=== PATIENT | female | born 1995 | race Caucasian/White ===

== ENCOUNTER 2022-05-27 21:00 | Emergency (ER) | payer BC, SELFPAY ==
[2022-05-27] VITALS (14 sets, daily range): BP systolic 176–199; BP diastolic 132–154; PULSE 79–99; RESP 16–18; TEMP 36.6; O2SAT 91–100; BMI 28.3
--- NOTE | 2022-05-27 21:48 | ED_ITS ---
HPI - Chest Pain General Date Seen: 05/27/22 Chief Complaint: High Blood Pressure Stated Complaint: Hypertension, Chest pain, high heart rate Time Seen by Provider: 05/27/22 21:03 Source: patient and family Mode of arrival: ambulatory Limitations: no limitations History of Present Illness HPI narrative: Patient is a 27-year-old female who has struggled with chest pain, she has been to the doctor this being her 3rd time in the last week, she was in the urgency room on 2 days ago, there her blood tests were normal her EKG was normal, she was sent out to follow up with her primary care physician she has seen her primary care physician, and not started on medication for her hypertension, as they were just watching it tonight her blood pressure became even higher in the 190 range, this was coupled with chest pain that she had, headache, and she thought she should be seen, she is a social smoker, does not use any drugs, uses only rare alcohol intake, was on control up to 3 days ago when she stopped this. MD complaint: chest pain Onset (ago): day(s) Timing of current episode: constant Prior episodes: Yes Onset: during rest and during exertion Pain location: substernal and left chest Pain radiation: none Severity: moderate Quality: tightness, aching and heaviness Relieving factors: nothing Exacerbating factors: exertion, inspiration, palpation, movement and stress Treatment prior to arrival: none Risk Factors Thoracic aortic dissection risk factors: none Pulmonary embolism risk factors: oral contracepetive use Related Data On Oral Contraceptives: Yes Home Medications Medication Instructions Recorded Confirmed melatonin 10 mg capsule 20 mg PO HS PRN 05/27/22 05/27/22 nortriptyline 25 mg capsule 25 mg PO DAILY 05/27/22 05/27/22 zolmitriptan 2.5 mg tablet See Rx Instructions PO .COMPLEX 05/27/22 05/27/22 Previous Rx's Medication Instructions Recorded atenolol 50 mg tablet 50 mg PO BID #60 tabs 05/28/22 Allergies Allergy/AdvReac Type Severity Reaction Status Date / Time doxycycline Allergy Severe Anaphylaxis Verified 05/27/22 23:46 sumatriptan Allergy Severe Anaphylaxis Verified 05/27/22 23:46 Review of Systems Status of ROS Reports: 10 or more systems reviewed and unremarkable except as noted in History and below PFSH PFSH Social History Smoking Status: Unknown if ever smoked Do you use any of these nicotine containing products: None Second hand tobacco smoke exposure: No How often do you have a drink containing alcohol: monthly or less How often do you have six or more drinks on one occasion: Never AUDIT-C Alcohol total score: 1 Non-prescribed substance use: denies use service: No Exam Narrative Exam Narrative: Patient is speaking normally, no problem with slurring words, oriented x3. Head eyes ears nose and throat exam show equal pupils, no scleral icterus, extraocular muscles are normal, no facial droop, speech is normal, trachea normal and midline. Thyroid normal midline palpable not enlarged. Chest shows symmetrical rise bilaterally, normal auscultation with no wheezes, no increased work of breathing, no overt bruising or lesions seen, no tenderness is noted on auscultation. Heart sounds normal with no S3-S4 no murmurs clicks or gallops. Abdomen shows no obvious masses or hepatosplenomegaly, no organomegaly, bowel s ounds are normal in all quadrants. No tenderness is noted also in all quadrants. Upper and lower extremities show normal power, normal range of motion, pulses are normal, sensations normal, fine motor movements are normal, pelvis is stable to rocking. Cervical spine shows normal range of motion, and palpably not tender. Thoracic spine shows normal range of motion, and palpably not tender, lumbar spine shows no tenderness to palpation percussion and is otherwise normal range of motion. Skin shows no rashes, petechiae or eccymosis. Const Vital Signs, click to edit/add: Vital Signs - 24 hr 05/27/22 21:14 05/27/22 21:45 05/27/22 22:00 Temperature 97.9 F Pulse Rate 89 Pulse Rate [Pulse Oximeter] 92 82 Respiratory Rate 16 18 Blood Pressure Blood Pressure [Right Upper Arm] 197/141 H 187/146 H Pulse Oximetry 98 100 100 Oxygen Delivery Method Room Air Room Air 05/27/22 22:02 05/27/22 22:03 05/27/22 22:15 Temperature Pulse Rate 84 81 80 Pulse Rate [Pulse Oximeter] Respiratory Rate Blood Pressure 199/154 H Blood Pressure [Right Upper Arm] Pulse Oximetry 100 98 98 Oxygen Delivery Method 05/27/22 22:30 05/27/22 22:32 05/27/22 22:45 Temperature Pulse Rate 79 86 86 Pulse Rate [Pulse Oximeter] Respiratory Rate 16 16 Blood Pressure 176/132 H 176/132 H Blood Pressure [Right Upper Arm] Pulse Oximetry 99 100 98 Oxygen Delivery Method Room Air 05/27/22 23:00 05/27/22 23:02 05/27/22 23:15 Temperature Pulse Rate 92 99 90 Pulse Rate [Pulse Oximeter] Respiratory Rate Blood Pressure 176/134 H Blood Pressure [Right Upper Arm] Pulse Oximetry 98 100 99 Oxygen Delivery Method 05/27/22 23:37 05/27/22 23:45 05/28/22 00:00 Temperature Pulse Rate 86 89 Pulse Rate [Pulse Oximeter] Respiratory Rate Blood Pressure Blood Pressure [Right Upper Arm] Pulse Oximetry 91 98 98 Oxygen Delivery Method 05/28/22 00:01 05/28/22 00:15 Temperature Pulse Rate 81 72 Pulse Rate [Pulse Oximeter] Respiratory Rate Blood Pressure 149/103 H Blood Pressure [Right Upper Arm] Pulse Oximetry 100 99 Oxygen Delivery Method Documenting provider has reviewed patient's vital signs: yes Course Course Hospital Course: Patient's headache improved in her blood pressure improved also. I think going home within the medications as directed would be important, atenolol 50 mg p.o. b.i.d., and follow-up with primary care, this may also help her headache situation. Reassured by her labs, her chest CT was normal, along with her head CT. Explained her that we do not have a cause for hypertension, but other causes should be ruled out but this can be done as an outpatient basis, Vital Signs Vital signs: Initial Vital Signs Temperature 97.9 F 05/27/22 21:14 Temperature Source Temporal Artery Scan 05/27/22 21:14 Pulse Rate 92 05/27/22 21:14 Pulse Rhythm 05/27/22 21:14 Respiratory Rate 16 05/27/22 21:14 Blood Pressure 197/141 H 05/27/22 21:14 Blood Pressure Mean 159 05/27/22 21:14 Pulse Oximetry 98 05/27/22 21:14 Oxygen Delivery Method 05/27/22 21:14 Vital Signs Temperature 97.9 F 05/27/22 21:14 Pulse Rate 92 05/27/22 21:14 Respiratory Rate 16 05/27/22 21:14 Blood Pressure 197/141 H 05/27/22 21:14 Pulse Oximetry 98 05/27/22 21:14 Oxygen Delivery Method 05/27/22 21:14 Temperature 97.9 F 05/27/22 21:14 Pulse Rate 72 05/28/22 00:15 Respiratory Rate 16 05/27/22 22:32 Blood Pressure 149/103 H 05/28/22 00:01 Pulse Oximetry 99 05/28/22 00:15 Oxygen Delivery Method 05/27/22 22:32 MDM - Chest Pain MDM Narrative Medical decision making narrative: During the evaluation of this patient I considered multiple differential diagnosis is. The life-threatening differential diagnosis include coronary disease/[place], pulmonary embolism, pneumothorax, pneumonia, and aortic dissection. Other differential diagnosis included but were not limited to pericarditis, myocarditis, chest wall pain, GERD, esophageal rupture, rib fracture contusion, pleurisy, as well as other etiologies. Medical Records Data Attestation: I reviewed the patient's medical records. Medical records narrative: Medical records from the urgency room reviewed. Lab Data Attestation: I reviewed the patient's lab results. Labs: Lab Results 05/27/22 05/27/22 05/27/22 Range/Units 21:50 21:50 21:50 WBC 7.56 (4.50-11.00) K/uL RBC 4.70 (4.00-5.20) m/uL Hgb 14.3 (12.0-16.0) gm/dL Hct 42.2 (33.0-51.0) % MCV 90 (80-100) fL MCH 30 (26-34) pg MCHC 34 (32-36) gm/dL RDW Coeff of Femi 11.8 (11.5-15.5) % Plt Count 313 (140-440) K/uL Neut % (Auto) 54.2 (42.0-72.0) % Lymph % (Auto) 37.6 (20-44) % [place] % (Auto) 6.7 (0.0-11.0) % Eos % (Auto) 1.2 (0.0-7.0) % Baso % (Auto) 0.3 (0.0-3.0) % Neut # (Auto) 4.10 (1.7-7.0) K/uL Lymph # (Auto) 2.84 (0.90-2.90) K/uL [place] # (Auto) 0.50 (0.00-0.90) K/UL Eos # (Auto) 0.09 (0.00-0.50) K/uL Baso # (Auto) 0.02 (0.00-0.30) K/uL INR (0.91-1.10) APTT (23-33) Seconds D-Dimer Quant (PE/DVT) 0.61 H (0.00-0.50) ug/ml Sodium 139 (135-149) mmol/L Potassium 3.4 L (3.6-5.1) mmol/L Chloride 105 (96-114) mmol/L Carbon Dioxide 28 (20-32) mmol/L BUN 11 (5-24) mg/dL Creatinine 0.8 (0.5-1.5) mg/dL Estimated Creat Clear 88.15 Estimated GFR 104 ml/min Glucose 106 (60-115) mg/dL Calcium 9.0 (8.4-10.6) mg/dL Troponin I < 0.01 L (0.01-0.04) ng/mL NT-Pro-B Natriuret Pep pg/mL HCG, Qual (Negative) Urine Color (Yellow) Urine Appearance (Clear) Urine pH (5.0-8.5) Ur Specific [place] (1.000-1.030) Urine Protein (Negative) Urine Glucose (UA) (Negative) Urine Ketones (Negative) Urine Blood (Negative) Urine Nitrite (Negative) Urine Bilirubin (Negative) Urine Urobilinogen (0.2-1.0) Ur Leukocyte Esterase (Negative) Urine RBC (0-2) Urine WBC (0-5) Ur Squamous Epith Cells (None-Few) Amorphous Sediment (None) Urine Bacteria (None) Urine Opiates Screen (Negative) Ur Oxycodone Screen (Negative) Urine Methadone Screen (Negative) Ur Propoxyphene Screen (Negative) Ur Barbiturates Screen (Negative) U Tricyclic Antidepress (Negative) Ur Phencyclidine Scrn (Negative) Ur Amphetamines Screen (Negative) U Methamphetamines Scrn (Negative) U Benzodiazepines Scrn (Negative) Urine Cocaine Screen (Negative) U Marijuana (THC) Screen (Negative) Ur Drug Screen Comment Ethyl Alcohol < 0.01 L (0.01-0.03) % SARS-CoV-2 (PCR) (Negative) Influenza Type A (PCR) (Negative) Influenza Type B (PCR) (Negative) RSV (PCR) (Negative) 05/27/22 05/27/22 05/27/22 Range/Units 21:50 21:50 21:50 WBC (4.50-11.00) K/uL RBC (4.00-5.20) m/uL Hgb (12.0-16.0) gm/dL Hct (33.0-51.0) % MCV (80-100) fL MCH (26-34) pg MCHC (32-36) gm/dL RDW Coeff of Femi (11.5-15.5) % Plt Count (140-440) K/uL Neut % (Auto) (42.0-72.0) % Lymph % (Auto) (20-44) % [place] % (Auto) (0.0-11.0) % Eos % (Auto) (0.0-7.0) % Baso % (Auto) (0.0-3.0) % Neut # (Auto) (1.7-7.0) K/uL Lymph # (Auto) (0.90-2.90) K/uL [place] # (Auto) (0.00-0.90) K/UL Eos # (Auto) (0.00-0.50) K/uL Baso # (Auto) (0.00-0.30) K/uL INR 0.82 L (0.91-1.10) APTT 27 (23-33) Seconds D-Dimer Quant (PE/DVT) (0.00-0.50) ug/ml Sodium (135-149) mmol/L Potassium (3.6-5.1) mmol/L Chloride (96-114) mmol/L Carbon Dioxide (20-32) mmol/L BUN (5-24) mg/dL Creatinine (0.5-1.5) mg/dL Estimated Creat Clear Estimated GFR ml/min Glucose (60-115) mg/dL Calcium (8.4-10.6) mg/dL Troponin I (0.01-0.04) ng/mL NT-Pro-B Natriuret Pep 176 pg/mL HCG, Qual (Negative) Urine Color (Yellow) Urine Appearance (Clear) Urine pH (5.0-8.5) Ur Specific [place] (1.000-1.030) Urine Protein (Negative) Urine Glucose (UA) (Negative) Urine Ketones (Negative) Urine Blood (Negative) Urine Nitrite (Negative) Urine Bilirubin (Negative) Urine Urobilinogen (0.2-1.0) Ur Leukocyte Esterase (Negative) Urine RBC (0-2) Urine WBC (0-5) Ur Squamous Epith Cells (None-Few) Amorphous Sediment (None) Urine Bacteria (None) Urine Opiates Screen (Negative) Ur Oxycodone Screen (Negative) Urine Methadone Screen (Negative) Ur Propoxyphene Screen (Negative) Ur Barbiturates Screen (Negative) U Tricyclic Antidepress (Negative) Ur Phencyclidine Scrn (Negative) Ur Amphetamines Screen (Negative) U Methamphetamines Scrn (Negative) U Benzodiazepines Scrn (Negative) Urine Cocaine Screen (Negative) U Marijuana (THC) Screen (Negative) Ur Drug Screen Comment Ethyl Alcohol (0.01-0.03) % SARS-CoV-2 (PCR) Negative SARS-CoV-2 (Negative) Influenza Type A (PCR) Negative PCR FLU A (Negative) Influenza Type B (PCR) Negative PCR FLU B (Negative) RSV (PCR) Negative PCR RSV (Negative) 05/27/22 05/27/22 05/27/22 Range/Units 21:55 21:55 21:55 WBC (4.50-11.00) K/uL RBC (4.00-5.20) m/uL Hgb (12.0-16.0) gm/dL Hct (33.0-51.0) % MCV (80-100) fL MCH (26-34) pg MCHC (32-36) gm/dL RDW Coeff of Femi (11.5-15.5) % Plt Count (140-440) K/uL Neut % (Auto) (42.0-72.0) % Lymph % (Auto) (20-44) % [place] % (Auto) (0.0-11.0) % Eos % (Auto) (0.0-7.0) % Baso % (Auto) (0.0-3.0) % Neut # (Auto) (1.7-7.0) K/uL Lymph # (Auto) (0.90-2.90) K/uL [place] # (Auto) (0.00-0.90) K/UL Eos # (Auto) (0.00-0.50) K/uL Baso # (Auto) (0.00-0.30) K/uL INR (0.91-1.10) APTT (23-33) Seconds D-Dimer Quant (PE/DVT) (0.00-0.50) ug/ml Sodium (135-149) mmol/L Potassium (3.6-5.1) mmol/L Chloride (96-114) mmol/L Carbon Dioxide (20-32) mmol/L BUN (5-24) mg/dL Creatinine (0.5-1.5) mg/dL Estimated Creat Clear Estimated GFR ml/min Glucose (60-115) mg/dL Calcium (8.4-10.6) mg/dL Troponin I (0.01-0.04) ng/mL NT-Pro-B Natriuret Pep pg/mL HCG, Qual Negative (Negative) Urine Color Yellow (Yellow) Urine Appearance Clear (Clear) Urine pH 7.0 (5.0-8.5) Ur Specific [place] 1.020 (1.000-1.030) Urine Protein Negative (Negative) Urine Glucose (UA) Negative (Negative) Urine Ketones Negative (Negative) Urine Blood Negative (Negative) Urine Nitrite Negative (Negative) Urine Bilirubin Negative (Negative) Urine Urobilinogen 0.2 (0.2-1.0) Ur Leukocyte Esterase Negative (Negative) Urine RBC 0-2 (0-2) Urine WBC 2-5 (0-5) Ur Squamous Epith Cells Few (None-Few) Amorphous Sediment Few A (None) Urine Bacteria Few A (None) Urine Opiates Screen Negative (Negative) Ur Oxycodone Screen Negative (Negative) Urine Methadone Screen Negative (Negative) Ur Propoxyphene Screen Negative (Negative) Ur Barbiturates Screen Negative (Negative) U Tricyclic Antidepress Negative (Negative) Ur Phencyclidine Scrn Negative (Negative) Ur Amphetamines Screen Negative (Negative) U Methamphetamines Scrn Negative (Negative) U Benzodiazepines Scrn Negative (Negative) Urine Cocaine Screen Negative (Negative) U Marijuana (THC) Screen Negative (Negative) Ur Drug Screen Comment See Note Ethyl Alcohol (0.01-0.03) % SARS-CoV-2 (PCR) (Negative) Influenza Type A (PCR) (Negative) Influenza Type B (PCR) (Negative) RSV (PCR) (Negative) Imaging Data CT scan - chest: Radiologist's impression: at[facility] Patient ID:?[id number] Site Patient ID:?[id number]. Site :?1995 Study:?CT Head -05/27/2022 11:42:56 PM Ordering Physician:Rajeev Paige Final Report: INDICATION: Headache TECHNIQUE: CT Head without i.v. contrast. Coronal and sagittal reformats were obtained. COMPARISON: None FINDINGS: CSF space: The ventricles are normal for age. Brain: No evidence of mass, acute infarction or hemorrhage is seen. No mass- effect or midline shift is seen. The brain parenchyma is otherwise normal in appearance with preservation of the lehman-white matter junction. Calvarium: The visualized paranasal sinuses are well aerated. The mastoid air cells are clear. The visualized orbits are grossly unremarkable. The calvarium is unremarkable in appearance with no fractures identified. IMPRESSION: 1. No evidence of acute infarction, intracranial hemorrhage, or mass-effect seen. Please note that all CT scans at this facility use dose modulation, iterative reconstruction, and/or weight-based dosing when appropriate to reduce radiation dose to as low as reasonably achievable. Dictated by: Clifton Skelton MD @ 05/28/2022 00:12:16 (Electronic Signature) Patient: [facility] Facility:?[facility] Patient ID:?[id number] Site Patient ID:?[id number]. Site :?1995 Study:?CT Chest Angio -05/27/2022 11:42:46 PM Ordering Physician:Rajeev Paige Final Report: INDICATION: Elevated D-dimer TECHNIQUE: CT chest with i.v. contrast using pulmonary angiographic technique. Coronal and sagittal reformats were obtained. CONTRAST: 95 mL Isovue 370 COMPARISON: None FINDINGS: Cardiovascular: The pulmonary arteries are unremarkable in enhancement with no evidence of acute pulmonary embolism. The heart has an unremarkable appearance and size. No sign of aneurysm in the thoracic aorta. Mediastinum: No mass or adenopathy seen. Lung: Both lungs are unremarkable in appearance. Pleura and pericardium: No sign of pleural effusion seen. No significant pericardial effusion is present. Chest wall and axilla: No mass or adenopathy seen. Bone: Unremarkable for age. Upper abdomen: Unremarkable. IMPRESSION: 1. No CT evidence of acute pulmonary emboli seen. Please note that all CT scans at this facility use dose modulation, iterative reconstruction, and/or weight-based dosing when appropriate to reduce radiation dose to as low as reasonably achievable. Dictated by: Clifton Skelton MD @ 05/28/2022 00:24:19 (Electronic Signature) ECG Data Attestation: I personally reviewed and interpreted this ECG as follows: ECG interpretation date: 05/27/22 Prior ECG tracings: not available for review Interpretation: EKG shows normal sinus rhythm, with the no acute changes, QRS QT IL all normal Discharge Plan Discharge Clinical Impression: Headache, Chest pain, Hypertension Patient Disposition: Home w/ Parent or Adult Condition: Stable Instructions: Chest Pain (DC), Acute Headache (ED), Hypertension (ED) Additional Instructions: Home rest, medications as directed, follow-up within the next 2 -3 days with primary care for recheck, start medications. ML of you chest along CT of your head was normal, remainder of her laboratory tests including test for heart attack and other kidney function tests were normal, Prescriptions: New atenolol 50 mg tablet 50 mg PO BID Qty: 60 2RF No Action melatonin 10 mg capsule 20 mg PO HS PRN nortriptyline 25 mg capsule 25 mg PO DAILY zolmitriptan 2.5 mg tablet See Rx Instructions .ROUTE .COMPLEX Rx Instructions: take 1 tab at onset of headache; if no relief may repeat 1 tab after at least 2 hrs; max = 4 tabs/24 hr Follow Up/Referrals: Provider,Not a Local [Primary Care Provider] - Stand Alone Forms: [employer] Info Instructions
[2022-05-27 21:57] LABS: Basophils Absolute Auto 0.02 K/uL (0.00-0.30); Basophils Percent Auto 0.3 % (0.0-3.0); Eosinophils Absolute Auto 0.09 K/uL (0.00-0.50); Eosinophils Percent Auto 1.2 % (0.0-7.0); Hematocrit 42.2 % (33.0-51.0); Hemoglobin* 14.3 gm/dL (12.0-16.0); Lymphocytes Absolute Auto 2.84 K/uL (0.90-2.90); Lymphocytes Percent Auto 37.6 % (20-44); Mean Corpuscular HGB Conc 34 gm/dL (32-36); Mean Corpuscular Hemoglobin 30 pg (26-34); Mean Corpuscular Volume 90 fL (80-100); Monocytes Percent Auto 6.7 % (0.0-11.0); Neutrophils Percent Auto 54.2 % (42.0-72.0); Platelet Count* 313 K/uL (140-440); RDW Coefficient of Variation % 11.8 % (11.5-15.5); White Blood Count* 7.56 K/uL (4.50-11.00)
[2022-05-27 22:06] LABS: Appearance Urine Clear (Clear); Bilirubin Urine Negative (Negative); Blood Urine Negative (Negative); Color Urine Yellow (Yellow); Glucose Urine Negative (Negative); Ketones Urine Negative (Negative); Leukocyte Esterase Urine Negative (Negative); Nitrite Urine Negative (Negative); Protein Urine Negative (Negative); Urobilinogen Urine 0.2 (0.2-1.0)
[2022-05-27 22:13] LABS: Slide Review Reflex No
[2022-05-27 22:14] LABS: INR 0.82 (0.91-1.10); Partial Thromboplastin Time* 27 Seconds (23-33); Prothrombin Time 11.8 Seconds
[2022-05-27 22:14] LABS: Amphetamine Screen Urine Negative (Negative); Barbiturate Screen Urine Negative (Negative); Benzodiazepines Screen Urine Negative (Negative); Cannabinoid Screen Urine Negative (Negative); Cocaine Screen Urine Negative (Negative); Methadone Screen Urine Negative (Negative); Methamphetamines Screen Urine Negative (Negative); Opiate Screen Urine Negative (Negative); Oxycodone Screen Urine Negative (Negative); Phencyclidine Screen Urine Negative (Negative); Tricyclic Antidepressant Urine Negative (Negative)
[2022-05-27 22:16] LABS: Chloride* 105 mmol/L (96-114); Potassium* 3.4 mmol/L (3.6-5.1); Sodium* 139 mmol/L (135-149)
[2022-05-27 22:18] LABS: Creatinine* 0.8 mg/dL (0.5-1.5); Est. Creatinine Clearance* 88.15; Estimated Glomerular Filt Rate 104 ml/min
[2022-05-27 22:19] LABS: Blood Urea Nitrogen* 11 mg/dL (5-24); Carbon Dioxide* 28 mmol/L (20-32); Glucose* 106 mg/dL (60-115)
[2022-05-27 22:25] LABS: Ethanol* < 0.01 % (0.01-0.03)
[2022-05-27 22:25] LABS: Amorphous Sediment Urine Few; Bacteria Urine Few; RBC Urine 0-2 (0-2); Squamous Epithelial Cell Urine Few (None-Few)
[2022-05-27 22:28] LABS: D Dimer Quantitative* 0.61 ug/ml (0.00-0.50)
[2022-05-27 22:29] LABS: NT Pro B Type NatriureticPept* 176 pg/mL
[2022-05-27 22:35] LABS: PCR FLU A Negative PCR FLU A (Negative); PCR FLU B Negative PCR FLU B (Negative); PCR RSV Negative PCR RSV (Negative)
[2022-05-27 22:37] LABS: Troponin I* < 0.01 ng/mL (0.01-0.04)
[2022-05-27 22:38] LABS: SARS PCR* Negative SARS-CoV-2 (Negative)
[2022-05-27 22:47] LABS: HCG Qualitative* Negative (Negative)
--- NOTE | 2022-05-27 22:56 | CRLHL7_ITS ---
For Patients: As a result of the Century Cures Act, medical imaging exams and procedure reports are released immediately into your electronic medical record. You may view this report before your referring provider. If you have questions, please contact your health care provider. INDICATION: Headache TECHNIQUE: CT Head without i.v. contrast. Coronal and sagittal reformats were obtained. COMPARISON: None FINDINGS: CSF space: The ventricles are normal for age. Brain: No evidence of mass, acute infarction or hemorrhage is seen. No mass-effect or midline shift is seen. The brain parenchyma is otherwise normal in appearance with preservation of the lehman-white matter junction. Calvarium: The visualized paranasal sinuses are well aerated. The mastoid air cells are clear. The visualized orbits are grossly unremarkable. The calvarium is unremarkable in appearance with no fractures identified. IMPRESSION: 1. No evidence of acute infarction, intracranial hemorrhage, or mass-effect seen. Please note that all CT scans at this facility use dose modulation, iterative reconstruction, and/or weight-based dosing when appropriate to reduce radiation dose to as low as reasonably achievable. Dictated by: Clifton Skelton MD @ 05/28/2022 00:12:16 (Electronically Signed)
--- NOTE | 2022-05-27 22:58 | CRLHL7_ITS ---
For Patients: As a result of the Century Cures Act, medical imaging exams and procedure reports are released immediately into your electronic medical record. You may view this report before your referring provider. If you have questions, please contact your health care provider. INDICATION: Elevated D-dimer TECHNIQUE: CT chest with i.v. contrast using pulmonary angiographic technique. Coronal and sagittal reformats were obtained. CONTRAST: 95 mL Isovue 370 COMPARISON: None FINDINGS: Cardiovascular: The pulmonary arteries are unremarkable in enhancement with no evidence of acute pulmonary embolism. The heart has an unremarkable appearance and size. No sign of aneurysm in the thoracic aorta. Mediastinum: No mass or adenopathy seen. Lung: Both lungs are unremarkable in appearance. Pleura and pericardium: No sign of pleural effusion seen. No significant pericardial effusion is present. Chest wall and axilla: No mass or adenopathy seen. Bone: Unremarkable for age. Upper abdomen: Unremarkable. IMPRESSION: 1. No CT evidence of acute pulmonary emboli seen. Please note that all CT scans at this facility use dose modulation, iterative reconstruction, and/or weight-based dosing when appropriate to reduce radiation dose to as low as reasonably achievable. Dictated by: Clifton Skelton MD @ 05/28/2022 00:24:19 (Electronically Signed)
[2022-05-27] MEDS: LORazepam 0.5 MG TABLET PO (23:10)
[2022-05-27] MEDS: atenoloL 50 MG TABLET PO (23:12)
[2022-05-27] MEDS: 0.9 % SODIUM CHLORIDE 1000 ml 1,000 ML IV (23:12)
[2022-05-28] VITALS: PULSE 89; O2SAT 98
[2022-05-28 00:01] VITALS: BP 149/103; PULSE 81; O2SAT 100
[2022-05-28 00:15] VITALS: PULSE 72; O2SAT 99
--- NOTE | 2022-05-28 00:28 | ED.NURSE ---
pt with call light on. IVF completed. Pt ambulate to BR with steady gait.
== END 2022-05-28 00:49 | disposition home or self-care (01) ==
PROVIDERS: Emergency Provider Family Medicine
DX: R07.9 Chest pain, unspecified (principal); R51.9 Headache, unspecified; I10 Essential (primary) hypertension
CPT/HCPCS: 36415; 70450; 71260; 80048; 80306; 81001; 82077; 83880; 84484; 84703; 85025; 85379; 85610; 85730; 87086; 87502; 87634; 87635; 93005; 99284; 99285; A9270; J7030; Q9967